=== PATIENT | female | born 1980 | race Caucasian/White ===

== ENCOUNTER 2016-07-11 19:05 | Emergency (ER) | payer BC ==
[2016-07-11] MEDS ORDERED: NS 0.9% 1000 ML* 2,000 ML IV ONE (19:22)
[2016-07-11] MEDS ORDERED: guaiFENesin/CODIEN 100MG-10MG* 5 ML UDC PO ONE (19:22)
[2016-07-11] MEDS ORDERED: Acetaminophen TAB* 325 MG PO ONE (19:22)
[2016-07-11 19:44] LABS: Hematocrit 37 % (35-47); Hemoglobin 12.5 g/dl (12.0-16.0); Mean Corpuscular HGB Conc 34 g/dl (31-36); Mean Corpuscular Hemoglobin 32 pg (27-31); Mean Corpuscular Volume 94 fL (80-97); Mean Platelet Volume 8 um3 (7.4-10.4); Red Blood Count 3.97 10^6/ul (4.0-5.4); Red Cell Distribution Width 12 % (10.5-15); White Blood Count 12.1 10^3/ul (3.5-10.8)
[2016-07-11 20:03] LABS: Albumin 4.1 g/dL (3.2-5.2); BUN/Creatinine Ratio 7.3 (8-20); EGFR African American 102.6 (>60); EGFR Non-African American 79.8 (>60); Globulin 3.1 g/dL (2-4); Potassium 3.5 mmol/L (3.5-5.0); Total Bilirubin 0.3 mg/dL (0.2-1.0); Total Protein 7.2 g/dL (6.4-8.9)
--- NOTE | 2016-07-11 20:18 | RAD ---
Indication: Chest tightness. Cough, vomiting, fever. Comparison: None. Technique: Sitting AP and lateral chest views. Report: Elevated lung volumes with increased AP thoracic diameter. No alveolar consolidation, focal pulmonary lesion, pleural effusion, pneumothorax. The heart, pulmonary vasculature, and mediastinal contours are unremarkable. Negative for free air beneath the diaphragm. IMPRESSION: Stigmata of potential obstructive lung disease. No evidence for pneumonia.
[2016-07-11] MEDS ORDERED: Oseltamivir CAP* 75 MG PO ONE (20:21)
--- NOTE | 2016-07-11 21:20 | ED ---
Ishaan Navarro Billy, scribed for Tono Virgen MD on 07/11/16 at 1923 . Complex/Multi-Sys Presentation - HPI Summary HPI Summary: Patient is a 35 year-old female coming to [facility] presenting with cough since last night. Her symptoms worsened today at 1630 when, while driving, she began to feel lightheaded. She also reports fevers, chills, sore throat, rhinorrhea, N /V, rapid palpitations, SOB, and panic attacks. She denies any abdominal pain. Positive flu shot. - History Of Current Complaint Chief Complaint: EDGeneral Time Seen by Provider: 07/11/16 19:15 Hx Obtained From: Patient Onset/Duration: Gradual Onset, Lasting Hours, Still Present Timing: Constant Severity Currently: Moderate Severity Initially: Moderate Aggravating Factor(s): n/a Alleviating Factor(s): n/a Associated Signs And Symptoms: Positive: SOB, Cough, Palpitations, Nausea, Vomiting, Fever, Other - chills, runny nose, sore throat, lightheaded, "panic" - Allergies/Home Medications Allergies/Adverse Reactions: Allergies Allergy/AdvReac Type Severity Reaction Status Date / Time Amoxicillin Allergy Rash Verified 07/11/16 19:08 Cefaclor [From Ceclor] Allergy Rash Verified 07/11/16 19:08 PMH/Surg Hx/FS Hx/Imm Hx Endocrine/Hematology History: Denies: Hx Diabetes Cardiovascular History: Denies: Hx Myocardial Infarction Psychiatric History: Reports: Hx Anxiety, Hx Depression Infectious Disease History: Yes Infectious Disease History: Denies: Traveled Outside the [place] in Last 30 Days - Family History Known Family History: Positive: Cardiac Disease - Social History Alcohol Use: Occasionally Hx Substance Use: No Substance Use Type: Reports: None Hx Tobacco Use: No Smoking Status (MU): Never Smoked Tobacco Review of Systems Positive: Fever, Chills Positive: Sore Throat, Nasal Discharge Positive: Palpitations Positive: Shortness Of Breath, Cough Positive: Vomiting, Nausea Neurological: Other - lightheaded Positive: Other - "panic" All Other Systems Reviewed And Are Negative: Yes Physical Exam - Summary Physical Exam Summary: Vital signs: Reviewed Gen.: Patient is a well-developed and nourished female in no acute distress. Patient is lying comfortably on the stretcher. Head: Normacephalic and atraumatic Eyes: PERRLA, EOMI x2. Ears: Right and Left ear canal and TM WNL Nose and mouth: POsitive pharyngeal erythema w/o exudate. Positive runny nose with clear discharge Neck: Supple, no lymphadenopathy, no JVD Lungs: CTA B/L CVS: S1 & S2 present. No murmurs appreciated. Abdomen: Soft, NT, Positive BS. Extremities: FROM x4, no edema, no cyanosis, positive pulses Neuro: Alert and oriented x 3. No acute neurological deficits. Skin: Warm and dry Triage Information Reviewed: Yes Vital Signs On Initial Exam: Initial Vitals Temp Pulse Resp BP Pulse Ox 104.1 F 126 18 135/71 100 07/11/16 19:07 07/11/16 19:07 07/11/16 19:07 07/11/16 19:07 07/11/16 19:07 Vital Signs Reviewed: Yes Diagnostics - Vital Signs Vital Signs Temp Pulse Resp BP Pulse Ox 07/11/16 19:07 104.1 F 126 18 135/71 100 - Laboratory Result Diagrams: 07/11/16 19:29 07/11/16 19:29 Lab Statement: Any lab studies that have been ordered have been reviewed, and results considered in the medical decision making process. - Radiology CXR Xray Interpretation: No Acute Changes Radiology Interpretation Completed By: Radiologist Re-Evaluation - Re-Evaluation First Eval Re-Evaluation Time: 20:11 Change: Unchanged Complex Multi-Symp Course/Dx Assessment/Plan: Patient is a 35 year-old female coming to [facility] presenting with cough since last night. Her symptoms worsened today at 1630 when, while driving, she began to feel lightheaded. She also reports fevers, chills, sore throat, rhinorrhea, N/V, rapid palpitations, SOB, and panic attacks. She denies any abdominal pain. Positive flu shot. Bloodwork WNL except for WBC of 12.1 and glucose of 155. Influenza A is positive. CXR shows no acute pathology. In the ED course, he was given IV fluids, Tylenol for fever, and Tamiflu for influenza. She is feeling better so she will be discharged home to follow up with PCP. VITAL SIGNS: Reviewed. GENERAL: Patient is a well developed and nourished who is lying comfortable in the stretcher. Patient is not in any acute respiratory distress. HEAD AND FACE: No signs of trauma. No ecchymosis, hematomas or skull depressions. No sinus tenderness. EYES: PERRLA, EOMI x 2, No injected conjunctiva, no nystagmus. EARS: Hearing grossly intact. Ear canals and tympanic membranes are within normal limits. MOUTH: Oropharynx within normal limits. NECK: Supple, trachea is midline, no adenopathy, no JVD, no carotid bruit, no c-spine tenderness, neck with full ROM. CHEST: Symmetric, no tenderness at palpation. LUNGS: Clear to auscultation bilaterally. No wheezing or crackles. CVS: Regular rate and rhythm, S1 and S2 present, no murmurs or gallops appreciated. ABDOMEN: Soft, non-tender. No signs of distention. No rebound no guarding, and no masses palpated. Bowel sounds are normal. EXTREMITIES: FROM in all major joints, no edema, no cyanosis or clubbing. NEURO: Alert and oriented x 3. No acute neurological deficits. Speech is normal and follows commands. SKIN: Dry and warm - Diagnoses Differential Diagnoses/HQI/PQRI: Other - Influenza, pharyngitis, sinusitis, UTI , PNA, cronchitis Provider Diagnoses: Influenza Discharge - Discharge Plan Condition: Stable Disposition: HOME Prescriptions: Oseltamivir CAP* [Tamiflu CAP*] 75 mg PO BID #10 cap Patient Education Materials: Influenza (ED) Referrals: [facility] [Outside] The documentation as recorded by the Ishaan harrington Billy accurately reflects the service I personally performed and the decisions made by dc, Tono Virgen MD.
[2016-07-11 21:43] LABS: Urine Bacteria Absent (Absent); Urine Bilirubin Negative (Negative); Urine Glucose Negative (Negative); Urine Nitrite Negative (Negative)
[2016-07-11 22:16] VITALS: BP 117/53
== END 2016-07-11 22:29 | disposition home or self-care (01) ==
LOC: ED 19:05
DX: J11.1 Influenza due to unidentified influenza virus with other respiratory manifestations (principal); F41.9 Anxiety disorder, unspecified; F32.9 Major depressive disorder, single episode, unspecified; Z88.0 Allergy status to penicillin
CPT/HCPCS: 36415; 71020; 80053; 81003; 81015; 83605; 85025; 87502; 87651; 99284; A9270-GY

== ENCOUNTER 2017-07-24 10:41 | Inpatient (IN) | payer BC, OTHER ==
[2017-07-24] MEDS ORDERED: Misoprostol TAB* 100 MCG VAGINAL ONE (11:25)
[2017-07-24] MEDS ORDERED: Misoprostol TAB* 100 MCG ONE (11:36)
[2017-07-24 12:02] LABS: ABS Basophils 0 10^3/ul (0-0.2); ABS Eosinophils 0.1 10^3/ul (0-0.6); ABS Lymphocytes 2.2 10^3/ul (1.0-4.8); ABS Monocytes 0.9 10^3/ul (0-0.8); ABS Neutrophils 10.3 10^3/ul (1.5-7.7); ABS Nucleated RBC 0 10^3/ul; Eosinophil % 0.4 % (0-6); Hematocrit 32 % (35-47); Hemoglobin 10.8 g/dl (12.0-16.0); Lymphocyte % 16.5 % (25-47); Mean Corpuscular HGB Conc 34 g/dl (31-36); Mean Corpuscular Hemoglobin 32 pg (27-31); Mean Corpuscular Volume 93 fL (80-97); Mean Platelet Volume 8 um3 (7.4-10.4); Nucleated Red Blood Cells % 0; Platelet Count 378 10^3/ul (150-450); Red Blood Count 3.39 10^6/ul (4.0-5.4); Red Cell Distribution Width 13 % (10.5-15); White Blood Count 13.5 10^3/ul (3.5-10.8)
[2017-07-24 12:05] LABS: Platelet Count 378 10^3/ul (150-450)
[2017-07-24 12:26] LABS: EGFR Non-African American 107.5 (>60)
[2017-07-24 12:27] LABS: INR 0.95 (0.77-1.02)
[2017-07-24 12:51] LABS: Schistocytes ABSENT
[2017-07-24] MEDS ORDERED: OBEPIDURAL* 250 ML EPIDURAL ONE (19:21)
[2017-07-24] MEDS ORDERED: fentaNYL* 50 MCG/ML 2 ML VIAL (100 MCG VIAL) ONE (19:22)
[2017-07-24] MEDS ORDERED: Famotidine TAB* 20 MG PO PRN (19:57)
[2017-07-24] MEDS ORDERED: Sodium Citrate/Citric Acid* 15 ML UDC PO PRN (19:57)
[2017-07-24] MEDS ORDERED: Phenylephrine IV* 40 MCG/ML 10 ML SYRINGE IV PUSH PRN ×2 (19:57)
[2017-07-24] MEDS ORDERED: EPHEDrine (Pressors)* 50 MG/ML VIAL IV PUSH PRN ×2 (19:57)
[2017-07-24] MEDS ORDERED: fentaNYL* 50 MCG/ML 2 ML VIAL (100 MCG VIAL) IV PRN (19:58)
[2017-07-24] MEDS ORDERED: OBEPIDURAL* 250 ML EPIDURAL SCH (20:00)
[2017-07-24] MEDS ORDERED: Oxytocin in LR* 20 UNITS/1,000 ML BAG IVPB ONE (20:39)
[2017-07-24] MEDS ORDERED: Glycerin ADULT SUPP PR PRN (20:59)
[2017-07-24] MEDS ORDERED: Witch Hazel PAD* JAR TOPICAL PRN (20:59)
[2017-07-24] MEDS ORDERED: Dibucaine 1% 28.35 GM TUBE PR PRN (20:59)
[2017-07-24] MEDS ORDERED: Ibuprofen TAB* 600 MG PO PRN (20:59)
[2017-07-24] MEDS ORDERED: Acetaminophen TAB* 325 MG PO PRN (20:59)
[2017-07-24] MEDS ORDERED: Oxytocin in LR* 20 UNITS/1,000 ML BAG IVPB SCH (21:00)
[2017-07-24] MEDS ORDERED: Docusate CAP* 100 MG PO SCH (21:00)
[2017-07-24] MEDS ORDERED: Zolpidem TAB* 5 MG PO PRN (21:02)
[2017-07-24] MEDS: GuaiFENesin DM* 5 ML UDC PO PRN (22:20)
[2017-07-25] MEDS: GuaiFENesin DM* 5 ML UDC PO PRN ×2 (02:16→06:07)
[2017-07-25 07:04] LABS: Hematocrit 34 % (35-47); Hemoglobin 11.4 g/dl (12.0-16.0); Mean Corpuscular HGB Conc 34 g/dl (31-36); Mean Corpuscular Hemoglobin 32 pg (27-31); Mean Corpuscular Volume 93 fL (80-97); Mean Platelet Volume 8 um3 (7.4-10.4); Platelet Count 372 10^3/ul (150-450); Red Blood Count 3.61 10^6/ul (4.0-5.4); Red Cell Distribution Width 13 % (10.5-15); White Blood Count 15.3 10^3/ul (3.5-10.8)
[2017-07-25 07:40] VITALS: BP 119/76
[2017-07-25] MEDS ORDERED: Ferrous Gluconate TAB* 324 MG TAB PO SCH (09:00)
== END 2017-07-25 10:50 | disposition home or self-care (01) | DRG 560 ==
LOC: MCHOBOUT 10:41 → MCHOB 11:23
PROVIDERS: ADMIT Midwife; ATTEND Midwife
PROC: 10E0XZZ Delivery of Products of Conception, External Approach (ICD-10-PCS; principal; 2017-07-24)
PROC: 3E033VJ Introduction of Other Hormone into Peripheral Vein, Percutaneous Approach (ICD-10-PCS; 2017-07-24)
DX: O36.4XX0 Maternal care for intrauterine death, not applicable or unspecified (principal); O99.344 Other mental disorders complicating childbirth; F32.9 Major depressive disorder, single episode, unspecified; O69.2XX0 Labor and delivery complicated by other cord entanglement, with compression, not applicable or unspecified; Z3A.32 32 weeks gestation of pregnancy; Z37.1 Single stillbirth
CPT/HCPCS: 36415; 80053; 80307; 80364; 83030; 84550; 85025; 85027; 85049; 85362; 85384; 85610; 85613; 85730; 86038; 86200; 86644; 86695; 86696; 86747; 86762; 86777; 86850; 86900; 86901; 87070; A9270-GY; G0480; J3010; S0191

== ENCOUNTER 2018-06-12 12:18 | Emergency (ER) | payer BC ==
--- OUTSIDE RECORDS SUMMARY | 2018-06-12 12:25 | XMS REPORT | Continuity of Care Document ---
:1980 External Reference #:[id number] Author Name Melvin Ballard MD Address [address] [place] [address] Care Team Providers Name Role Phone Radha Herndon Primary Care Physician Unavailable Payers Type Date Identification Numbers Payment Provider Subscriber Policy Number: [id number] [facility] Emily Nazario Group Name: [facility] [address] PayID: [id number] [place] [address] Effective: 2009 Policy Number: [id number] [facility] Emily Nazario Expires: 2011 Group Name: BC/BS of [facility] [address] [address] PayID: [id number] MARCO Reina [id number] Effective: 2011 Policy Number: [id number] [employer] Emily Nazario Expires: 2013 Group Number: [id number] [address] PayID: [id number] CINDY Meyers [id number] Advance Directives Description No Information Available Problems Date Description Provider Status Onset: 12/01/2011 Allergic rhinitis Migdalia Rogers M.D. Active Onset: 12/01/2011 Depressive disorder Migdalia Rogers M.D. Active Onset: 12/01/2011 Contraception care management Migdalia Rogers M.D. 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 Smoke-Free Home is smoke-free Pets 1 cat Pets 1 dog Occupation Payroll at [employer] Tobacco Use Start: Unknown Never Smoked Cigarettes ETOH Use Occasionally consumes alcohol Recreational Drug Use Never Used Drugs Tobacco Use Start: Unknown Patient has never smoked Enjoy Exercising Enjoys exercising Currently Active Patient is currently sexually active Allergies, Adverse Reactions, Alerts Date Description Reaction Status Severity Comments 06/20/2011 Amoxicillin Urticaria Active Mild 06/20/2011 Ceclor Urticaria Active Medications Medication Date Status Form Strength Qnty SIG Indications Ordering Provider Doxycycline 06/03 Active Capsules 100mg 14cap 1 take by J01.90 Melvin Hyclate s mouth He[place]derks, capsule 2 MD times per day for 7 days for infection Singulair 09/29 Active Tablets 10mg 30tab take one Nataly s tablet by Shortle, mouth at CAPONIZER bedtime Polymyxin B 09/29 Active Solution 38879-9.1 10ml 1 drop to H10.89 Nataly Sulfate/Trimetho /2017 Unit/ML-% both eyes Shortle, prim Sulfate four times CAPONIZER a day for 7 days Fluticasone 10/13 Active Suspension 50mcg/Act 16uni 2 Sprays Gagan Propionate ts Into Each Herndon Nostril III, EQUIPMENT ASSOCIATE-C Once Daily Breo Ellipta Active Per Unknown /0000 Stephen Escitalopram Active Tablets 20mg 1 by mouth Unknown / every day per psychiatry Montelukast 09/13 Hx Chewtabs 5mg 30uni Chew One R05 Nataly Sodium ts Tablet By Shortle, - Mouth CAPONIZER 09/29 Every Day For Allergies Montelukast 09/08 Hx Tablets 10mg 30tab take one R05 Nataly Sodium s tablet by Shortle, - mouth at CAPONIZER 03/18 bedtime Cyclobenzaprine 08/06 Hx Tablets 5mg 30tab take 1 or R05 Nataly HCL /2017 s 2 tabs as Shortle, - needed for CAPONIZER 09/29 muscle pain Montelukast 08/06 Hx Chewtabs 5mg 30uni chew one R05 Sodium ts tablet by Shortle, - mouth CAPONIZER 09/08 every day for allergies Zithromax Z-Abraham 07/27 Hx Tablets 250mg 6tabs take 2 J06.9 tabs today Shortle, - and one CAPONIZER 07/05 day for the following 4 days. Proair HFA 07/27 Hx Aerosol 108(90Bas 8.500 2 puffs as J06.9 e) gm needed Shortle, - mcg/Act every 4 to CAPONIZER 09/29 6 hrs. Bactrim DS 12/12 Hx Tablets 800-160mg 20tab 1 by mouth H66.93 Radha s twice a Saad, - day x 10 EQUIPMENT ASSOCIATE-C Azithromycin 12/08 Hx Tablets 250mg 6tabs take 2 H66.93 Radha tablets Saad, - today then EQUIPMENT ASSOCIATE-C 12/12 1 tablet daily for the next 4 days Escitalopram 04/14 Hx Tablets 20mg 30tab Take One F32.9 Gagan Oxalate /2015 s Tablet By Herndon - Mouth III, EQUIPMENT ASSOCIATE-C 12/08 Every Day; Maximum Daily Dose=1 Escitalopram 01/31 Hx Tablets 10mg 30tab 1 by mouth F41.9 Gagan Oxalate /2015 s every day Herndon - III, EQUIPMENT ASSOCIATE-C 03/21 Ergocalciferol 08/03 Hx Capsules 80134Avrr 8caps take 1 Gagan tablet by Valeria - mouth once III, EQUIPMENT ASSOCIATE-C 01/31 a week for 8 weeks Buspirone HCL 06/08 Hx Tablets 7.5mg 60tab Take One F41.9 Gagan /2014 s Tablet By Herndon - Mouth III, EQUIPMENT ASSOCIATE-C 01/31 Twice A Day For Anxiety; Maximum Daily Dose=2 Ventolin HFA 05/11 Hx Aerosol 108(90Bas 8gm 1-2 puffs J45.909 Gagan e) every 4-6 Herndon - mcg/Act hours as III, EQUIPMENT ASSOCIATE-C 09/29 needed for sob/wheezi ng. Singulair 05/11 Hx Tablets 10mg 30tab 1 tablet J45.909 Gagan s by mouth Herndon - daily III, EQUIPMENT ASSOCIATE-C 01/31 Escitalopram 02/20 Hx Tablets 20mg 90tab 1 tab by F32.9 Gagan Oxalate s mouth Herndon - daily III, EQUIPMENT ASSOCIATE-C 01/31 Escitalopram 01/23 Hx Tablets 10mg 30tab one by 311 Gagan Oxalate s mouth Valeria - daily III, EQUIPMENT ASSOCIATE-C 02/20 Azithromycin 10/13 Hx Tablets 250mg 6tabs take 2 382.9 Radha tablets Saad, - today then EQUIPMENT ASSOCIATE-C 01/23 1 tablet /2014 daily for the next 4 days Nabumetone 12/26 Hx Tablets 500mg 60tab 1 by mouth 719.46 Migdalia /2013 s twice a Avelino Rogers, - day M.D. 10/13 Nasonex 10/25 Hx Suspension 50mcg/Act 17uni [place] 1 To Migdalia ts 2 Sprays Avelino Rogers, - Into Each M.D. 10/13 Nostril /2014 Once Daily Multi 08/09 Hx Capsules 27-0.8-22 Take one Migdalia + 8mg daily as Avelino Rogers, - directed M.D. 10/13 Albuterol HFA 08/09 Hx 90mcg/Inh 1unit 2 puffs q 478.9 Migdalia s 4hours prn Avelino Rogers, - M.D. 09/29 Nasonex 03/22 Hx Suspension 50mcg/Act 17gm 1-2 sprays 477.9 Migdalia intranasal Avelino Rogers, - M.D. 08/09 Nuvaring 12/11 Hx Ring 0.12-0.01 1unit use pv as Migdalia 5mg/24HR s directed Avelino Rogers, - M.D. 08/09 Cefdinir 06/20 Hx Capsules 300mg 20cap Take 1 382.9 s tablet bid Saad, - for 10 EQUIPMENT ASSOCIATE-C Yris 28 Hx Tablets 3-0.03mg 1pack 1 tablet Unknown /0000 po daily - at the 12/11 same time /2011 of Ortho Tri-Cyclen Hx Tablets 0.18/0.21 1 by mouth Unknown () /0000 5/0.25 every day - mg-35 mcg 12/08 Immunizations CPT Code Status Date Vaccine Lot # [id number] Given 03/29/2018 Influenza Virus Vaccine, Quadrivalent, 3 Yr > Quad, Preserv Free [id number] Given 05/01/2016 Influenza Virus Vaccine, Quadrivalent, 3 Yr > Quad, Preserv Free [id number] Given 03/22/2012 Influenza Vaccine-Preservative Free 3 Yrs And [id number] Above Vital Signs Date Vital Result Comment 06/03/2018 2:22pm Weight 209.00 lb Weight 94.802 kg BP Systolic 110 mmHg BP Diastolic 90 mmHg Heart Rate 78 /min Body Temperature 97.9 F O2 % BldC Oximetry 99 % 09/29/2017 11:42am Weight 195.00 lb Weight 88.452 kg BP Systolic 126 mmHg BP Diastolic 80 mmHg Heart Rate 100 /min Body Temperature 98.6 F Respiratory Rate 16 /min O2 % BldC Oximetry 99 % 08/06/2017 9:33am Weight 200.00 lb Weight 90.720 kg BP Systolic 122 mmHg BP Diastolic 80 mmHg Heart Rate 72 /min Body Temperature 99.2 F O2 % BldC Oximetry 97 % 07/27/2017 11:13am Weight 201.00 lb Weight 91.174 kg BP Systolic 130 mmHg BP Diastolic 78 mmHg Heart Rate 88 /min Body Temperature 99.3 F tylenol at 10am Respiratory Rate 12 /min O2 % BldC Oximetry 98 % 12/12/2016 8:57am Weight 203.00 lb Weight 92.081 kg BP Systolic 118 mmHg BP Diastolic 80 mmHg Heart Rate 78 /min Body Temperature 97.6 F Respiratory Rate 12 /min 12/08/2016 9:53am Weight 202.00 lb Weight 91.627 kg BP Systolic 120 mmHg BP Diastolic 79 mmHg Heart Rate 68 /min Body Temperature 99.4 F 07/15/2016 11:26am Weight 191.00 lb Weight 86.638 kg BP Systolic 120 mmHg BP Diastolic 80 mmHg Heart Rate 96 /min Body Temperature 97.6 F Ibuprofen at 930am Respiratory Rate 14 /min O2 % BldC Oximetry 98 % 04/01/2016 9:18am Weight 189.00 lb Weight 85.730 kg BP Systolic 120 mmHg BP Diastolic 82 mmHg Heart Rate 70 /min Body Temperature 98.4 F Respiratory Rate 17 /min O2 % BldC Oximetry 99 % 03/21/2016 9:20am Weight 187.00 lb Weight 84.823 kg BP Systolic 120 mmHg BP Diastolic 70 mmHg Heart Rate 72 /min Body Temperature 98.0 F Respiratory Rate 12 /min 02/01/2016 1:23pm Weight 192.00 lb Weight 87.091 kg BP Systolic 118 mmHg BP Diastolic 70 mmHg Heart Rate 82 /min Body Temperature 98.0 F Respiratory Rate 16 /min 08/03/2015 9:03am Weight 181.00 lb Weight 82.102 kg BP Systolic 128 mmHg BP Diastolic 70 mmHg Heart Rate 80 /min 06/08/2015 8:56am Weight 174.00 lb Weight 78.926 kg BP Systolic 114 mmHg BP Diastolic 66 mmHg Heart Rate 68 /min Body Temperature 98.4 F 05/11/2015 9:15am Weight 172.00 lb Weight 78.019 kg BP Systolic 122 mmHg BP Diastolic 82 mmHg Heart Rate 74 /min O2 % BldC Oximetry 99 % 05/11/2015 9:11am Heart Rate 74 /min O2 % BldC Oximetry 99 % 02/20/2015 8:49am Weight 169.00 lb Weight 76.658 kg BP Systolic 120 mmHg BP Diastolic 70 mmHg Heart Rate 80 /min 01/23/2015 8:12am Weight 169.00 lb Weight 76.658 kg BP Systolic 118 mmHg BP Diastolic 70 mmHg Heart Rate 80 /min 10/13/2014 8:00am Weight 165.00 lb Weight 74.844 kg BP Systolic 114 mmHg BP Diastolic 66 mmHg Heart Rate 86 /min Body Temperature 98.3 F Height 65.5 inches 5'5.50" BMI (Body Mass Index) 27.0 kg/m2 Last Menstrual Period [id number] O2 % BldC Oximetry 99 % 12/26/2013 10:59am Weight 179.00 lb Weight 81.194 kg BP Systolic 126 mmHg BP Diastolic 74 mmHg Heart Rate 66 /min Body Temperature 98.3 F 08/09/2012 8:47am Weight 177.00 lb Weight 80.287 kg BP Systolic 104 mmHg BP Diastolic 50 mmHg Heart Rate 80 /min Body Temperature 99.0 F 03/22/2012 9:14am Weight 159.00 lb Weight 72.122 kg BP Systolic 104 mmHg BP Diastolic 68 mmHg Heart Rate 66 /min Height 64.75 inches 5'4.75" BMI (Body Mass Index) 26.7 kg/m2 11/20/2011 2:05pm Weight 150.00 lb Weight 68.040 kg BP Systolic 112 mmHg BP Diastolic 60 mmHg Heart Rate 64 /min Body Temperature 97.5 F Height 65 inches 5'5" BMI (Body Mass Index) 25.0 kg/m2 06/20/2011 10:36am Weight 149.50 lb Weight 67.813 kg BP Systolic 110 mmHg BP Diastolic 60 mmHg Heart Rate 76 /min Body Temperature 98.4 F Results Test Date Facility Test Result H/L Range Note Laboratory test 08/03/2015 [facility] Vitamin D 13.3 ng/mL Low 30-50 finding [phone] Total 25(Oh) Laboratory test 08/03/2015 [facility] TSH (Thyroid 0.80 ?IU/mL N 0.34-5.60 finding [phone] Stim Horm) Comp Metabolic 08/03/2015 [facility] Sodium 137 mmol/ L N 133-145 Panel [phone] Potassium 4.5 mmol/L N 3.5-5.0 Chloride 104 mmol/L N 101-111 Co2 Carbon Dioxide 28 mmol/L N 22-32 Anion Gap 5 mmol/L N 2-11 Glucose 88 mg/dL N 70-100 Blood Urea Nitrogen 11 mg/dL N 6-24 Creatinine 0.87 mg/dL N 0.51-0.95 BUN/Creatinine Ratio 12.6 N 8-20 Calcium 8.9 mg/dL N 8.6-10.3 Total Protein 6.5 g/dL N 6.4-8.9 Albumin 4.1 g/dL N 3.2-5.2 Globulin 2.4 g/dL N 2-4 Albumin/Globulin Ratio 1.7 N 1-3 Total Bilirubin 0.40 mg/dL N 0.2-1.0 Alkaline Phosphatase 56 U/L N 34-104 Alt 12 U/L N 7-52 Ast 15 U/L N 13-39 Egfr Non- 75.0 N >60 Egfr 96.4 N >60 1 CBC Auto Diff 08/03/2015 [facility] White Blood 5.9 10^3/uL N 3.5-10.8 [phone] Count Red Blood Count 3.82 10^6/uL Low 4.0-5.4 Hemoglobin 12.6 g/dL N 12.0-16.0 Hematocrit 37 % N 35-47 Mean Corpuscular Volume 97 fL N 80-97 Mean Corpuscular Hemoglobin 33 pg High 27-31 Mean Corpuscular HGB Conc 34 g/dL N 31-36 Red Cell Distribution Width 13 % N 10.5-15 Platelet Count 338 10^3/uL N 150-450 Mean Platelet Volume 8 um3 N 7.4-10.4 Abs Neutrophils 3.1 10^3/uL N 1.5-7.7 Abs Lymphocytes 2.1 10^3/uL N 1.0-4.8 Abs Monocytes 0.5 10^3/uL N 0-0.8 Abs Eosinophils 0.1 10^3/uL N 0-0.6 Abs Basophils 0 10^3/uL N 0-0.2 Abs Nucleated RBC 0 10^3/uL N Granulocyte % 52.5 % N 38-83 Lymphocyte % 35.6 % N 25-47 Monocyte % 9.1 % High 1-9 Eosinophil % 2.2 % N 0-6 Basophil % 0.6 % N 0-2 Nucleated Red Blood Cells % 0 N CBC Auto 10/13/2014 [facility] White Blood 14.9 10^3/ uL High 4.8-10.8 Diff [phone] Count Red Blood Count 4.03 10^6/uL N 4.0-5.4 Hemoglobin 13.3 g/dL N 12.0-16.0 Hematocrit 39 % N 35-47 Mean Corpuscular Volume 97 fL N 80-97 Mean Corpuscular Hemoglobin 33 pg High 27-31 Mean Corpuscular HGB Conc 34 g/dL N 31-36 Red Cell Distribution Width 13 % N 10.5-15 Platelet Count 382 10^3/uL N 150-450 Mean Platelet Volume 8 um3 N 7.4-10.4 Abs Neutrophils 11.8 10^3/uL High 1.5-7.7 Abs Lymphocytes 1.9 10^3/uL N 1.0-4.8 Abs Monocytes 1.0 10^3/uL High 0-0.8 Abs Eosinophils 0.1 10^3/uL N 0-0.6 Abs Basophils 0.1 10^3/uL N 0-0.2 Abs Nucleated RBC 0 10^3/uL N Granulocyte % 79.3 % N 38-83 Lymphocyte % 12.9 % Low 25-47 Monocyte % 7.0 % N 1-9 Eosinophil % 0.4 % N 0-6 Basophil % 0.4 % N 0-2 Nucleated Red Blood Cells % 0 N Comp Metabolic Panel 10/13/2014 [facility] Sodium 137 mmol/L N 133-145 [phone] Potassium 4.1 mmol/L N 3.5-5.0 Chloride 102 mmol/L N 101-111 Co2 Carbon Dioxide 28 mmol/L N 22-32 Anion Gap 7 mmol/L N 2-11 Glucose 83 mg/dL N 70-100 Blood Urea Nitrogen 6 mg/dL N 6-24 Creatinine 0.84 mg/dL N 0.51-0.95 BUN/Creatinine Ratio 7.1 Low 8-20 Calcium 9.1 mg/dL N 8.6-10.3 Total Protein 7.2 g/dL N 6.4-8.9 Albumin 4.4 g/dL N 3.2-5.2 Globulin 2.8 g/dL N 2-4 Albumin/Globulin Ratio 1.6 N 1-3 Total Bilirubin 0.70 mg/dL N 0.2-1.0 Alkaline Phosphatase 53 U/L N 34-104 Alt 12 U/L N 7-52 Ast 14 U/L N 13-39 Egfr Non- 78.1 N >60 Egfr 100.4 N >60 2 Lipid Profile 10/13/2014 [facility] Triglycerides 170 mg/dL N 3 (Trig/Chol/HDL) [phone] Cholesterol 115 mg/dL N 4 HDL Cholesterol 50.7 mg/dL N 5 LDL Cholesterol 30 mg/dL N 6 Laboratory test 10/13/2014 [facility] Vitamin B12 284 pg/mL N 180-914 7 finding [phone] Urine DIP 10/13/2014 In House Lab Specific 1.000 Low 1.01-1.02 (607)- - [place] Urine pH 5 5-6 Leukocytes NEG Neg Urine Nitrites NEG Neg Total Protein, Urine NEG Neg Urine Glucose NORM Norm Urine Ketones NEG Neg Urobilinogen NORM Norm Urine Bilirubin NEG Neg Urine Blood NEG Neg Basic Metabolic 11/26/2011 [facility] Sodium 139 mmol /L 135-145 Panel [phone] Potassium 4.3 mmol/L 3.5-5.0 Chloride 106 mmol/L 101-111 Co2 (Carbon Dioxide) 26.0 mmol/L 22-32 Anion Gap 7.0 mmol/L 2-11 8 Glucose 87 mg/dL 70-100 BUN 11 mg/dL 6-24 Creatinine 0.9 mg/dL 0.50-1.40 One Over Creatinine 1.11 BUN/Creatinine Ratio 12.2 8-20 Calcium 9.0 mg/dL 8.1-9.9 eGFR Non- 73.5 > 60 eGFR 94.5 > 60 9 CBC With Manual 11/26/2011 [facility] White Blood 6.4 CUMM 4.8-10.8 Diff [phone] Count Red Cell Count 3.85 CUMM Low 4.2-5.4 Hemoglobin 13.0 g/dL 12.0-16.0 Hematocrit 37 % 35-47 Mean Corpuscular Volume 96 um3 79-97 Mean Corpuscular Hemoglob 34 pg High 27-31 Mean Corpuscular HGB Cone 35 g/dL 32-36 Redcell Distribution WDTH 13 % 10.5-15 Platelet Count 321 CUMM 150-450 Mean Platelet Volume 7.6 um3 7.4-10.4 Absolute Neutrophil Count 3.5 1.5-7.7 Polysegmented Neutrophil 55 % 38-83 Band Neutrophil 2 % 0-8 Lymphocyte 34 % 25-47 Monocyte 7 % 0-13 Eosinophil 1 % 0-6 Atypical Lymph 1 % 0-6 RBC Morphology NORMAL Lipid Profile 11/26/2011 [facility] Triglyceride 156 mg/dL 40-200 (Trig/Chol/HDL) [phone] Cholesterol 144 mg/dL Less Than 200 10 High Density Lipoprotein 71 mg/dL High 40-60 11 Cholesterol/HDL Ratio 2.03 AVERAGE 1-4.44 Low Density Lipoprotein 42 mg/dL Less Than 100 12 Liver Function 11/26/2011 [facility] Total Protein 6.2 GM/DL 6.2-8.1 Panel [phone] Albumin 3.5 GM/DL Low 3.6-5.4 Globulin 2.7 GM/DL 2-4 Albumin/Globulin Ratio 1.3 1-3 Bilirubin Total 0.5 mg/dL 0.4-1.5 13 Bilirubin Direct 0.0 mg/dL Low 0.1-0.5 Indirect Bilirubin (SEE NOTE) mg/dL 0.3-1.0 14 Alkaline Phosphatase 48 U/L 30-110 Alt (SGPT) 11 U/L Low 14-54 Ast (Sgot) 15 U/L 12-42 Laboratory test 11/26/2011 [facility] Vitamin B12 178 pg/mL Low 180-914 finding [phone] TSH 1.23 MIU/ML 0.34-5.60 Vitamin D, 1,25 Dihydroxy 37 pg/mL 18-78 15 Urine DIP 11/20/2011 In House Lab Leukocytes NEG Neg (607)- - Urine Nitrites NEG Neg Urine pH 5 5-6 Total Protein, Urine TRACE Neg Urine Glucose NORM Norm Urine Ketones NEG Neg Urobilinogen NORM Norm Urine Bilirubin NEG Neg Urine Blood TRACE Neg Specific [place] NA Low 1.01-1.02 1 Because ethnic data is not always readily available, this report includes an eGFR for both -Americans and non- Americans. The National Kidney Disease Education Program (NKDEP) does not endorse the use of the MDRD equation for patients that are not between the ages of 18 and 70, are , have extremes of body size, muscle mass, or nutritional status, or are non- or non-. According to the National Kidney Foundation, irrespective of diagnosis, the stage of the disease is based on the level of kidney function: Stage Description GFR(mL/min/1.73 m(2)) 1 Kidney damage with normal or decreased GFR 90 2 Kidney damage with mild decrease in GFR 60-89 3 Moderate decrease in GFR 30-59 4 Severe decrease in GFR 15-29 5 Kidney failure <15 (or dialysis) 2 Because ethnic data is not always readily available, this report includes an eGFR for both -Americans and non- Americans. The National Kidney Disease Education Program (NKDEP) does not endorse the use of the MDRD equation for patients that are not between the ages of 18 and 70, are , have extremes of body size, muscle mass, or nutritional status, or are non- or non-. According to the National Kidney Foundation, irrespective of diagnosis, the stage of the disease is based on the level of kidney function: Stage Description GFR(mL/min/1.73 m(2)) 1 Kidney damage with normal or decreased GFR 90 2 Kidney damage with mild decrease in GFR 60-89 3 Moderate decrease in GFR 30-59 4 Severe decrease in GFR 15-29 5 Kidney failure <15 (or dialysis) 3 Desirable <150 Borderline high 150-199 High 200-499 Very High >500 4 Desirable <200 Borderline high 200-239 High >239 5 Low <40 Desirable: 40-60 High: >60 6 Desirable: <100 mg/dL Near Optimal: 100-129 mg/dL Borderline High: 130-159 mg/dL High: 160-189 mg/dL Very High: >189 mg/dL 7 Normal Range 180 to 914 Indeterminate Range 145 to 180 Deficient Range <145 8 Anion gap measurement may be of limited value in the presence of any alkalosis, especially in a combined acid base disorder. . 9 Because ethnic data is not always readily available, this report includes an eGFR for both -Americans and non- Americans. The National Kidney Disease Education Program (NKDEP) does not endorse the use of the MDRD equation for patients that are not between the ages of 18 and 70, are , have extremes of body size, muscle mass, or nutritional status, or are non- or non-. According to the National Kidney Foundation, irrespective of diagnosis, the stage of the disease is based on the level of kidney function: Stage Description GFR(mL/min/1.73 m(2)) 1 Kidney damage with normal or decreased GFR 90 2 Kidney damage with mild decrease in GFR 60-89 3 Moderate decrease in GFR 30-59 4 Severe decrease in GFR 15-29 5 Kidney failure <15 (or dialysis) 10 CHOLESTEROL INTERPRETATION: Desirable: Less than 200 MG/DL Borderline-High Risk: 200-239 MG/DL High-Risk: 240 MG/DL and over 11 HDL INTERPRETATION: Undesirable: High Risk: Less than 40 MG/DL Desirable: Low Risk: Greater than 60 MG/DL 12 LDL INTERPRETATION: Low Risk Optimal Level: LDL Less than 100 MG/DL Near or Above Optimal: LDL 100-129 MG/DL Borderline High Risk: LDL 130-159 MG/DL High Risk: LDL 160-189 MG/DL Very High Risk: LDL Greater than 189 MG/DL 13 A metabolite of Naproxen, O-desmethylnaproxen, has been shown to interfere with the Jendrassik-Ramez method for measuring total bilirubin. Samples from patients who have taken Naproxen have shown spurious elevation in total bilirubin levels. 14 UNABLE TO CALCULATE IND.BILI D.BILI IS <0.1 Please note updated reference range, effective 01/17/10 15 Test Performed by: [facility] [address] [place] [address] Returns Clerk: Abram Schaeffer III, M.D. Procedures Description No Information Available Encounters Type Date Location Provider Dx Diagnosis Office Visit 09/29/2017 11:30a Main Office Nataly Conteh, CAPONIZER R05 Cough H10.89 Other conjunctivitis Office Visit 08/06/2017 9:30a Main Office Nataly R05 Cough Shortle, CAPONIZER Office Visit 07/27/2017 11:00a Main Office Nataly J06.9 Acute upper Shortle, CAPONIZER respiratory infection, unspecified Office Visit 12/12/2016 9:15a Main Office Radha Herndon, H66.93 Otitis media, EQUIPMENT ASSOCIATE-C unspecified, bilateral Office Visit 12/08/2016 9:30a Main Office Rdaha Herndon, H66.93 Otitis media, EQUIPMENT ASSOCIATE-C unspecified, bilateral Office Visit 07/15/2016 11:15a Main Office Gagan Shaw J09.x9 Flu due to ident III, EQUIPMENT ASSOCIATE-C novel influenza A virus w oth manifest Office Visit 04/01/2016 9:15a Main Office Gagan Shaw F41.9 Anxiety disorder, III, EQUIPMENT ASSOCIATE-C unspecified Office Visit 03/21/2016 9:15a Main Office Gagan Shaw F41.9 Anxiety disorder, III, EQUIPMENT ASSOCIATE-C unspecified Office Visit 02/01/2016 1:30p Main Office Gagan Shaw F41.9 Anxiety disorder, III, EQUIPMENT ASSOCIATE-C unspecified Office Visit 08/03/2015 9:00a Main Office Gagan Shaw F41.9 Anxiety disorder, III, EQUIPMENT ASSOCIATE-C unspecified J45.909 Unspecified asthma, uncomplicated R07.9 Chest pain, unspecified Office Visit 06/08/2015 9:00a Main Office Gagan Shaw F41.9 Anxiety disorder, III, EQUIPMENT ASSOCIATE-C unspecified F32.9 Major depressive disorder, single episode, unspecified J45.909 Unspecified asthma, uncomplicated Office Visit 05/11/2015 9:15a Main Office Gagan Shaw J45.909 Unspecified asthma, III, EQUIPMENT ASSOCIATE-C uncomplicated Office Visit 02/20/2015 8:45a Main Office Gagan Shaw 311 Depressive Disorder III, EQUIPMENT ASSOCIATE-C Not Elsewhere Spec Office Visit 01/23/2015 8:00a Main Office Gagan Shaw 311 Depressive Disorder III, EQUIPMENT ASSOCIATE-C Not Elsewhere Spec Office Visit 10/13/2014 8:00a Main Office Radha Herndon, V70.0 Examination General EQUIPMENT ASSOCIATE-C Medical Routine AT Health Care Facility V17.49 Family HX Of Other Cardiovascular Diseases 281.1 Vitamin B12 Deficiency Anemia Other 382.9 Otitis Media Unspec Office Visit 12/26/2013 11:00a Main Office Migdalia Rogers, 719.46 Pain Joint M.D. Lower Leg 701.9 Skin Tags Office Visit 08/09/2012 8:45a Main Office Migdalia You 478.9 Upper Resp Tract Siri Rogers Disease Other & Unspec Office Visit 03/22/2012 9:15a Main Office Migdalia You 311 Depressive Siri Rogers Disorder Not Elsewhere Spec 477.9 Rhinitis Allergic Cause Unspec V04.81 Need For Prophylactic Vaccination & Inoculation/Influenza Office Visit 11/20/2011 2:00p Main Office Migdalia You V70.0 Examination General Siri Rogers Medical Routine AT Health Care Facility 477.9 Rhinitis Allergic Cause Unspec 311 Depressive Disorder Not Elsewhere Spec V25.09 Contraceptive Management Other Office Visit 06/20/2011 11:00a Main Office Radha Herndon, 382.9 Otitis Media EQUIPMENT ASSOCIATE-C Unspec Plan of Treatment 06/03/2018 - Melvin Ballard, MDJ01.90 Acute sinusitis, unspecifiedNew Medication:Doxycycline Hyclate 100 mg - 1 take by mouth capsule 2 times per day for 7 days for infectionComments:The patients symptoms and exam fit well with an acute sinusitis. Due to the severity of symptoms, the length of symptoms, or both we made the decision to proceed immediately to antibiotic treatment. The patient will also use nasal saline.We went over the risks and benefits of this treatment plan.We reviewed signs and symptoms of worsening infection or illness. Patient was given the opportunity to askany questions, which were answered.Recommendations:-Continue flonase -Sudafed (behind the counter).
--- NOTE | 2018-06-12 12:37 | ED ---
Complex/Multi-Sys Presentation - History Of Current Complaint Chief Complaint: EDNauseaVomitDiarrh Time Seen by Provider: 06/12/18 12:32 Hx Obtained From: Patient - Allergies/Home Medications Allergies/Adverse Reactions: Allergies Allergy/AdvReac Type Severity Reaction Status Date / Time amoxicillin Allergy Rash Verified 06/12/18 12:21 cefaclor [From Ceclor] Allergy Rash Verified 06/12/18 12:21 PMH/Surg Hx/FS Hx/Imm Hx Endocrine/Hematology History: Denies: Hx Diabetes Cardiovascular History: Denies: Hx Myocardial Infarction Psychiatric History: Reports: Hx Anxiety, Hx Depression Infectious Disease History: Yes Infectious Disease History: Denies: Traveled Outside the [place] in Last 30 Days - Family History Known Family History: Positive: Cardiac Disease - Social History Alcohol Use: None Hx Substance Use: No Substance Use Type: Reports: None Hx Tobacco Use: No Smoking Status (MU): Never Smoked Tobacco Physical Exam Vital Signs On Initial Exam: Initial Vitals Temp Pulse Resp BP Pulse Ox 97.9 F 95 18 114/55 100 06/12/18 12:22 06/12/18 12:22 06/12/18 12:22 06/12/18 12:22 06/12/18 12:22 Diagnostics - Vital Signs Vital Signs Temp Pulse Resp BP Pulse Ox 06/12/18 12:22 97.9 F 95 18 114/55 100 - Laboratory Lab Statement: Any lab studies that have been ordered have been reviewed, and results considered in the medical decision making process. Discharge - Discharge Plan Referrals: Melvin Ballard MD [Primary Care Provider] - - Attestation Statements Document Initiated by Scribe: Yes
[2018-06-12] MEDS ORDERED: Ondansetron INJ* 2 MG/ML VIAL IV ONE (12:48)
[2018-06-12] MEDS ORDERED: NS 0.9% 1000 ML* 2,000 ML IV ONE (12:49)
--- NOTE | 2018-06-12 13:02 | ED ---
Abdominal Pain/Female - HPI Summary HPI Summary: A 37 y/o female accompanied by her , Albert, presents to ED c/o lower abdominal cramping. Additionally c/o nausea, vomiting, and diarrhea. Currently, the patient is uncomfortable and is still experiencing lower abdominal cramping reaching 5/10 in severity. According to the patient, she felt a little funny last night but still went to bed and slept through the night. When she woke up this morning she felt that something was off which is when the vomiting and diarrhea started together shortly after. These symptoms were also coupled with the onset of lower abdominal pain. She noted that her symptoms and the way she is feeling seems very familiar to her and it is similar to when she was diagnosed with C. diff back in 1997. The patient was on Doxycycline antibiotic recently for a 7 days, which was finished on , June 10, 2018 prescribed by her primary care provider. She stated she had no diarrhea when she was on her antibiotic treatment. She vomited a total of 4 times this am. There was no blood seen in her vomit or diarrhea. Pt states he sinus infection did resolve on the doxycycline. As per , he noted that the patient has been very dizzy and has chills. The patient agreed with her and also stated she gets "panicky" and has numbness in legs, arms, and sometimes in her face. She denies any CP, headache, or fever, but does have SOB. Patient declines pain medications at this time. LKMP was May 29, 2018. Allergies include amoxicillin and cefaclor. Home Medications Medication Instructions Recorded Confirmed Type Escitalopram Oxalate [Lexapro] 20 mg PO DAILY 06/12/18 06/12/18 History Fluticasone NASAL SPRAY 50MCG* 2 spray BOTH NARES DAILY 06/12/18 06/12/18 History [Flonase NASAL SPRAY 50MCG*] Fluticasone/Vilanterol MDI(NF) 1 puff INH DAILY 06/12/18 06/12/18 History [Breo Ellipta MDI 200/25(NF)] LevoCETirizine TAB (NF) [Xyzal TAB 5 mg PO DAILY 06/12/18 06/12/18 History (NF)] - History of Current Complaint Chief Complaint: EDNauseaVomitDiarrh Stated Complaint: GENERAL ILLNESS Time Seen by Provider: 06/12/18 12:32 Hx Obtained From: Patient, 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 Negative: Chest Pain, Blood in Stool Allergies/Adverse Reactions: Allergies Allergy/AdvReac Type Severity Reaction Status Date / Time amoxicillin Allergy Rash Verified 06/12/18 12:58 cefaclor [From [facility]] Allergy Rash Verified 06/12/18 12:58 Home Medications: Home Medications Escitalopram Oxalate [Lexapro] 20 mg PO DAILY 06/12/18 [History Confirmed ] Fluticasone NASAL SPRAY 50MCG* [Flonase NASAL SPRAY 50MCG*] 2 spray BOTH NARES DAILY 06/12/18 [History Confirmed 06/12/18] Fluticasone/Vilanterol MDI(NF) [Breo Ellipta MDI 200/25(NF)] 1 puff INH DAILY [History Confirmed 06/12/18] LevoCETirizine TAB (NF) [Xyzal TAB (NF)] 5 mg PO DAILY 06/12/18 [History Confirmed 06/12/18] PMH/Surg Hx/FS Hx/Imm Hx Previously Healthy: No Endocrine/Hematology History: Denies: Hx Diabetes Cardiovascular History: Denies: Hx Myocardial Infarction GI History: Reports: Other GI Disorders - hx C diff diarrhea, 1997 Psychiatric History: Reports: Hx Anxiety, Hx Depression - Surgical History Surgery Procedure, Year, and Place: PER PATIENT, NO PRIOR SURGERIES NOTED. Infectious Disease History: Yes Infectious Disease History: Denies: Traveled Outside the [place] in Last 30 Days - Family History Known Family History: Positive: Cardiac Disease, Other - [place]. - Social History Occupation: Employed Full-time - [employer] Lives: With Family Alcohol Use: Daily Hx Substance Use: No Substance Use Type: Reports: None Hx Tobacco Use: No Smoking Status (MU): Never Smoked Tobacco Review of Systems Positive: Chills. Negative: Fever Negative: Chest Pain Positive: Shortness Of Breath Positive: Abdominal Pain - CRAMPING, Vomiting, Diarrhea, Nausea Positive: no symptoms reported Skin: Negative Neurological: Other - POSITIVE: DIZZINESS Positive: Numbness - LEGS, ARMS, AND SOMETIMES FACE, NOW RESOLVED. Negative: Headache Psychological: Normal All Other Systems Reviewed And Are Negative: Yes Physical Exam - Summary Physical Exam Summary: Appearance: Well-appearing, moderate pain distress, well-nourished Skin: Warm, color reflects adequate perfusion, dry Head: Normal Head/Face inspection, atraumatic Eyes: Conjunctiva clear ENT: Normal inspection Neck: Supple, no nodes, no JVD Respiratory: Lungs clear, normal breath sounds, no respiratory distress Cardio: RRR, No murmur, pulses normal, brisk capillary refill Abdomen: Soft, nontender, no distention, no masses Bowel sounds: Present, hyperactive bowel sounds. Musculoskeletal: Strength Intact/ROM intact, no calf tenderness, no edema. Psychological: Normal Neuro: Alert, muscle tone normal, no focal deficit Triage Information Reviewed: Yes Vital Signs On Initial Exam: Initial Vitals Temp Pulse Resp BP Pulse Ox 97.9 F 95 18 114/55 100 06/12/18 12:22 06/12/18 12:22 06/12/18 12:22 06/12/18 12:22 06/12/18 12:22 Vital Signs Reviewed: Yes Diagnostics - Vital Signs Vital Signs Temp Pulse Resp BP Pulse Ox 06/12/18 12:22 97.9 F 95 18 114/55 100 - Laboratory Result Diagrams: 06/12/18 12:50 06/12/18 12:50 Lab Statement: Any lab studies that have been ordered have been reviewed, and results considered in the medical decision making process. Re-Evaluation - Re-Evaluation First Eval Re-Evaluation Time: 13:50 Change: Worse Comment: Pt requests pain medication. Will give toradol. Second Eval Re-Evaluation Time: 15:18 Change: Improved Comment: PATIENT IS FEELING MUCH BETTER. PATIENT CAN SIP ON WATER WITHOUT VOMITING. PATIENT IS AGREEABLE TO DISCHARGE. Third Eval Re-Evaluation Time: 16:10 Change: Improved Comment: Remains pain free. is with her. Pt drank 16 oz without vomiting. Pulse 104. No abd pain. Had one more bout of diarrhea while in the ED, but no vomiting. Stool culture and O & P pending. Abdominal Pain Fem Course/Dx - Course Course Of Treatment: A 37 y/o female presents to the ED c/o lower abdominal cramping. Additionally c/o nausea, vomiting, and diarrhea. In the ED room, the patient is seen as very uncomfortable and still is experiencing the lower abdominal cramping. She stated that nausea, vomiting, and diarrhea was coupled with the lower abdominal pain that started this morning. The patient is concerned as these symptoms and the way that she is feeling is similar to when she was diagnosed with C. diff. The patient was recently on Doxycycline. There was no blood in her vomit or stool. Additional symptoms include dizziness and chills. Also she had numbness diffusely throughout her body, now resolved. She denies any CP, SOB, or fever. Patient declined pain medications at time of initial encounter, then later requested pain medication. LNKP was 05/29/2018. Physical examination findings revealed no abdominal distention and no masses; however, hyperactive bowel sounds are present. Stool was sent for analysis and C. diff PCR was negative, lactoferrin was positive, occult blood neg. Labs showed wbc 12, CRP 10, normal lactate, neg HCG. Urine was negative except for ketones. In the ED course, the patient received Toradol, Zofran, and IV fluids with improvement in her symptoms. During re-evaluation, the patient stated that she was feeling much better and can sip on water without vomiting. Patient was agreeable to be discharged. Patient will be discharged with a diagnosis of acute diarrhea. Stool culture and O&P studies are pending at time of DC. Patient is to follow up with primary care provider, Dr. Melvin Ballard, in 2 days. Patient is to return to ED for any new or worsening symptoms. Patient is agreeable with this plan. - Diagnoses Differential Diagnosis: Positive: Appendicitis, Diverticulitis, Other - colitis , C diff Provider Diagnoses: Acute diarrhea Discharge - Sign-Out/Discharge Documenting (check all that apply): Patient Departure - DISCHARGE - Discharge Plan Condition: Stable Disposition: HOME Prescriptions: Ondansetron ODT TAB* [Zofran 4 MG Odt TAB*] 4 mg PO Q6H PRN #20 tab.odt PRN Reason: Nausea Patient Education Materials: Acute Nausea and Vomiting (ED), Acute Diarrhea (ED ) Forms: *Work Release Referrals: Melvin Ballard MD [Primary Care Provider] - 2 Days Additional Instructions: Your C diff test was negative. The fecal lactoferrin was positive, indicating inflammation. There are still ova and parasite tests and a stool culture pending on you. We will notify you if you need further treatment based on these results. Hydrate the best you can. You may want to try electrolyte salts, or pedialyte. You may want a probiotic. Be cautious with milk products, but you may try yogurt with active cultures. Avoid fruits except banana. You may use over the counter imodium (loperamide) as directed, as long as you don't have a fever. If the diarrhea continues for more than three days, you should be checked again. RETURN TO ED FOR ANY NEW OR WORSENING SYMPTOMS. - Billing Disposition and Condition Condition: STABLE Disposition: Home - Attestation Statements Document Initiated by Sowmya: Yes Documenting Scribe: Yayo Johnson Provider For Whom Sowmya is Documenting (Include Credential): Gianna Fermin MD Scribe Attestation: Yayo Navarro scribed for Gianna Fermin MD on 06/13/18 at 0106. Scribe Documentation Reviewed: Yes Provider Attestation: The documentation as recorded by the Yayo harrington accurately reflects the service I personally performed and the decisions made by me, Gianna Fermin MD Status of Scrcarole Document: Viewed
[2018-06-12 13:13] LABS: ABS Basophils 0 10^3/ul (0-0.2); ABS Eosinophils 0 10^3/ul (0-0.6); ABS Lymphocytes 0.3 10^3/ul (1.0-4.8); ABS Monocytes 0.5 10^3/ul (0-0.8); ABS Nucleated RBC 0 10^3/ul; Eosinophil % 0.3 %; Hematocrit 42 % (35-47); Hemoglobin 14.4 g/dl (12.0-16.0); Lymphocyte % 2.6 %; Mean Corpuscular HGB Conc 34 g/dl (31-36); Mean Corpuscular Hemoglobin 32 pg (27-31); Mean Corpuscular Volume 94 fL (80-97); Mean Platelet Volume 7.4 fL (7.4-10.4); Nucleated Red Blood Cells % 0; Platelet Count 367 10^3/ul (150-450); Red Blood Count 4.52 10^6/ul (4.00-5.40); Red Cell Distribution Width 13 % (10.5-15)
[2018-06-12 13:18] LABS: INR 1.02 (0.77-1.02)
[2018-06-12 13:25] LABS: EGFR Non-African American 81.2 (>60)
[2018-06-12] MEDS ORDERED: Ketorolac INJ* 30 MG/ML 1 ML VIAL IV PUSH ONE (13:53)
[2018-06-12 15:24] LABS: Urine Appearance Clear; Urine Blood Negative (Negative); Urine Color Yellow; Urine Ketones 1+ (Negative); Urine Protein Negative (Negative); Urine Specific Gravity 1.013 (1.010-1.030); Urine Urobilinogen Negative (Negative)
[2018-06-12 16:21] VITALS: BP 107/72
== END 2018-06-12 16:27 | disposition home or self-care (01) ==
LOC: ED 12:18
DX: R19.7 Diarrhea, unspecified (principal); R11.2 Nausea with vomiting, unspecified; R10.30 Lower abdominal pain, unspecified; Z88.0 Allergy status to penicillin; R06.02 Shortness of breath
CPT/HCPCS: 36415; 80053; 81003; 82150; 82272; 82550; 83605; 83630; 83690; 83735; 84702; 85025; 85610; 86140; 87045; 87046; 87328; 87329; 87493; 87899; 96361; 96374; 96375; 99282; J1885; J2405